=== PATIENT | female | born 1955 | race Caucasian/White ===

== ENCOUNTER 2020-08-02 14:47 | Emergency (ER) | payer MEDICARE, MEDICAID ==
--- NOTE | 2020-08-02 15:32 | EDM.PDOC ---
ED HPI GENERAL MEDICAL PROBLEM - General Chief Complaint: Chest Pain Stated Complaint: CHEST PAIN Time Seen by Provider: 08/02/20 15:10 Source of Information: Reports: Patient History Limitations: Reports: No Limitations - History of Present Illness INITIAL COMMENTS - FREE TEXT/NARRATIVE: 64 YO WF PRESENTS TO ER COMPLAINING OF CHEST PAIN WHICH BEGAN AFTER LUNCH TODAY. PT REPORTS SHE WAS SITTING IN BED WHEN SHE DEVELOPED SUDDEN ONSET OF SUBSTERNAL CHEST PAIN. PT REPORTS ASSOCIATED SHORTNESS OF BREATH AND DIAPHORESIS WHICH LASTED UNTIL EMS ARRIVED. PT RECEIVED NITRO/ASA AND HAD COMPLETE RESOLUTION OF HER SYMPTOMS. PT DENIES COUGH/CONGESTION, NO FEVER/CHILLS, NO N/V/D. PT WITH PMH OF ANXIETY/DEPRESSION, COPD, HYPERTENSION, AND PROXIMAL ATRIAL FIB. PT CURRENTLY CHEST PAIN FREE. Onset: Today Location: Reports: Chest Quality: Reports: Ache Severity: Moderate Improves with: Reports: Medication Worsens with: Reports: None Associated Symptoms: Reports: Chest Pain, Diaphoresis, Shortness of Breath. Denies: Cough, Fever/Chills, Nausea/Vomiting, Rash, Syncope, Weakness Treatments SCREEDMAN: Reports: Aspirin, IV/IO, Nitroglycerin ED ROS GENERAL - Review of Systems Review Of Systems: See Below Constitutional: Reports: No Symptoms HEENT: Reports: No Symptoms Respiratory: Reports: Shortness of Breath Cardiovascular: Reports: Chest Pain, Lightheadedness Endocrine: Reports: No Symptoms GI/Abdominal: Reports: No Symptoms : Reports: No Symptoms Musculoskeletal: Reports: No Symptoms Skin: Reports: No Symptoms Neurological: Reports: No Symptoms Psychiatric: Reports: No Symptoms Hematologic/Lymphatic: Reports: No Symptoms Immunologic: Reports: No Symptoms ED EXAM, GENERAL - Physical Exam Exam: See Below Exam Limited By: No Limitations General Appearance: Alert, WD/WN, No Apparent Distress Eye Exam: Bilateral Eye: EOMI, PERRL Head: Atraumatic, Normocephalic Neck: Normal Inspection, Supple, Non-Tender, Full Range of Motion Respiratory/Chest: No Respiratory Distress, Lungs Clear, Normal Breath Sounds, No Accessory Muscle Use, Chest Non-Tender Cardiovascular: Normal Peripheral Pulses, Regular Rate, Rhythm, No Edema, No Gallop, No JVD, No Murmur, No Rub GI/Abdominal: Normal Bowel Sounds, Soft, Non-Tender, No Organomegaly, No Distention, No Abnormal Bruit, No Mass Back Exam: Normal Inspection, Full Range of Motion, NT Extremities: Normal Inspection, Normal Range of Motion, Non-Tender, Normal Capillary Refill, No Pedal Edema Neurological: Alert, Oriented, CN II-XII Intact, Normal Cognition, Normal Gait, Normal Reflexes, No Motor/Sensory Deficits Psychiatric: Normal Affect, Normal Mood Skin Exam: Warm, Dry, Intact, Normal Color, No Rash Lymphatic: No Adenopathy EKG INTERPRETATION EKG Date: 08/02/20 Time: 15:22 Rhythm: NSR Rate (Beats/Min): 84 [place]: Normal P-Wave: Present QRS: Normal ST-T: Normal QT: Normal Comparison: NA - No Prior EKG Course - Vital Signs Last Recorded V/S: Last Vital Signs Temp 36.3 C 08/02/20 14:49 Pulse 88 08/02/20 14:49 Resp 16 08/02/20 14:49 BP 146/63 H 08/02/20 14:49 Pulse Ox 89 L 08/02/20 14:49 - Orders/Labs/Meds Orders: Active Orders 24 hr Category Date Time Status EKG Documentation Completion [RC] ASDIRECTED Care 08/02/20 15:05 Active CORONAVIRUS COVID-19 RAPID [MOLEC] Stat Lab 08/02/20 16:21 Ordered EKG 12 Lead [EK] Stat Ther 08/02/20 15:03 Ordered Labs: Laboratory Tests 08/02/20 08/02/20 08/02/20 Range/Units 15:25 15:25 15:25 WBC 3.23 L (5.00-10.00) 10^3/uL RBC 4.15 (3.80-5.50) 10^6/uL Hgb 12.0 (12.0-16.0) g/dL Hct 38.0 (37.0-47.0) % MCV 91.6 (82.0-92.0) fL MCH 28.9 (27.0-31.0) pg MCHC 31.6 L (32.0-36.0) g/dL RDW 14.1 (11.5-14.5) % Plt Count 145 L (150-400) 10^3/uL MPV 9.0 (7.4-10.4) fL Immature Gran % (Auto) 0.6 (0.0-5.0) % Neut % (Auto) 57.0 (50.0-70.0) % Lymph % (Auto) 36.2 (20.0-40.0) % Grady % (Auto) 6.2 (2.0-8.0) % Eos % (Auto) 0.0 L (1.0-3.0) % Baso % (Auto) 0.0 (0.0-1.0) % Neut # (Auto) 1.84 L (2.50-7.00) 10^3/uL Lymph # (Auto) 1.17 (1.00-4.00) 10^3/uL [place] # (Auto) 0.20 (0.10-0.80) 10^3/uL Eos # (Auto) 0.00 L (0.10-0.30) 10^3/uL Baso # (Auto) 0.00 (0.00-0.10) 10^3/uL Immature Gran # (Auto) 0.02 (0.00-0.50) 10^3/uL PT 11.1 (9.2-11.2) SEC INR 1.1 (0.9-1.1) APTT 31.4 (22.8-31.4) SEC Sodium 137 (136-145) mmol/L Potassium 4.0 (3.3-5.3) mmol/L Chloride 101 (98-115) mmol/L Carbon Dioxide 31.0 (21.0-32.0) mmol/L Anion Gap 9.0 (5-15) mmol/L BUN 9 (6-25) mg/dL Creatinine 0.58 (0.51-1.17) mg/dL Est Cr Clr Drug Dosing TNP Estimated GFR (MDRD) > 60 mL/min Glucose 145 H (75 - 99) mg/dL Calcium 8.3 L (8.7-10.3) mg/dL Total Bilirubin 0.5 (0.2-1.0) mg/dL AST 164 H (15-37) U/L ALT 72 (12-78) U/L Alkaline Phosphatase 188 H (46-116) IU/L Creatine Kinase 59 (26-276) U/L CK-MB (CK-2) < 0.50 (0.00-4.30) ng/mL Troponin I < 0.04 (0.00-0.070) ng/mL B-Natriuretic Peptide 7 (0-100) pg/mL Total Protein 6.9 (6.4-8.2) g/dL Albumin 3.25 (3.00-4.80) g/dL - Radiology Interpretation Free Text/Narrative:: CXR- CM WITH PULMONARY CONGESTION Departure - Departure Time of Disposition: 16:29 Disposition: Refer to Observation Condition: Good Clinical Impression: Chest pain Qualifiers: Chest pain type: unspecified Qualified Code(s): R07.9 - Chest pain, unspecified Referrals: Geeta Phillips MD [Primary Care Provider] - Forms: ED Department Discharge Sepsis Event Note (ED) - Evaluation Sepsis Screening Result: No Definite Risk - Focused Exam Vital Signs: Vital Signs Temp Pulse Resp BP Pulse Ox 08/02/20 14:49 36.3 C 88 16 146/63 H 89 L - My Orders Last 24 Hours: My Active Orders 08/02/20 15:03 EKG 12 Lead [EK] Stat 08/02/20 15:05 EKG Documentation Completion [RC] ASDIRECTED 08/02/20 16:21 CORONAVIRUS COVID-19 RAPID [MOLEC] Stat - Assessment/Plan Last 24 Hours: My Active Orders 08/02/20 15:03 EKG 12 Lead [EK] Stat 08/02/20 15:05 EKG Documentation Completion [RC] ASDIRECTED 08/02/20 16:21 CORONAVIRUS COVID-19 RAPID [MOLEC] Stat Assessment:: 1. CHEST PAIN Plan: 1. ADMIT TO MEDICINE- DR SHAH 2. ASA/NITRO 3. TROP I Q4 X 3 4. SUPPORTIVE CARE
--- NOTE | 2020-08-02 15:46 | CR ---
[id number] RAD/RAD Chest PA or AP 1V EXAM: RAD Chest PA or AP 1V INDICATION: CHEST PAIN. COMPARISON: None. DISCUSSION: Cardiomegaly and central vascular congestion. Lungs are clear. No pleural effusion or pneumothorax. IMPRESSION: As above. Bhavin Cleaning MD 08/02/20 [id number] Thank you for allowing us to participate in the care of your patient.
[2020-08-02 15:53] LABS: PTT,PARTIAL THROMBOPLSTIN TIME 31.4 SEC (22.8-31.4)
[2020-08-02 16:13] LABS: CHLORIDE,CL 101 mmol/L (98-115); SODIUM,NA 137 mmol/L (136-145)
[2020-08-02] MEDS ORDERED: Sodium Chloride 0.9% 10 ML Syringe FLUSH PRN (16:30)
[2020-08-02] MEDS ORDERED: Nitroglycerin 2% Oint 1 GM UD Packet TOP SCH (16:45)
[2020-08-03] MEDS ORDERED: Aspirin 325 MG Tab.EC PO SCH (09:00)
== END 2020-08-02 18:15 ==
LOC: KA.ED 14:47 → UNDOADMOB 16:30 → KA.MS 16:30 → KA.ED 18:15
DX: U07.1 COVID-19 (principal)
CPT/HCPCS: 36415; 71045; 80053; 82550; 82553; 83880; 84484; 85025; 85610; 85730; 93005; 99285; U0002

== ENCOUNTER 2020-11-29 15:10 | Emergency (ER) | payer MEDICARE, MEDICAID ==
--- NOTE | 2020-11-29 15:51 | EDM.PDOC ---
ED HPI GENERAL MEDICAL PROBLEM - General Chief Complaint: Allergic Reaction Stated Complaint: ALLERGIC REACTION Time Seen by Provider: 11/29/20 15:40 Source of Information: Reports: Patient, EMS History Limitations: Reports: No Limitations - History of Present Illness INITIAL COMMENTS - FREE TEXT/NARRATIVE: 65 YO WF PRESENTS TO ER AFTER AN ALLERGIC REACTION TODAY AT THE [facility] AFTER EATING [place]. PT REPORTS SHE FELT SWELLING AND ITCHING IN HER MOUTH AND BECAME CONCERNED AND IMMEDIATELY USED HER EPIPEN. EMS ARRIVED AT WHICH TIME PATIENT WAS STABLE, IN NO RESPIRATORY DISTRESS, NO CHEST PAIN OR DIZZINESS. PT REPORTS HER SYMPTOMS HAVE RESOLVED AFTER USING EPIPEN WHICH WAS ADMINISTERED 1.5 HOURS AGO. PT DENIES RASH, SHORTNESS OF BREATH, NO DIFFICULTY SWALLOWING, NO PALPITATIONS OR DIZZINESS. VITAL SIGNS- P-88, BP-130/56, RR-18, SAO2-97% ON RA. PT WITHOUT COMPLAINTS. Onset: Sudden Onset Date: 11/29/20 Onset Time: 14:00 Duration: Hour(s): (2) Location: Reports: Generalized Severity: Moderate Improves with: Reports: Medication Worsens with: Reports: None Associated Symptoms: Reports: Shortness of Breath. Denies: Confusion, Chest Pa in, Cough, Diaphoresis, Fever/Chills, Headaches, Nausea/Vomiting, Rash, Syncope, Weakness Treatments PAY AGENT: Reports: Other Medication(s), Oxygen - Related Data Allergies Allergy/AdvReac Type Severity Reaction Status Date / Time adhesive tape Allergy Rash Verified 08/02/20 16:51 ammonia Allergy Shortness Verified 08/02/20 16:51 of Breath atorvastatin Allergy Cannot Verified 08/02/20 16:51 Remember lactose Allergy Diarrhea Verified 08/02/20 16:51 lurasidone Allergy Cannot Verified 08/02/20 16:51 Remember pecan nut Allergy Anaphylactic Verified 08/02/20 16:51 Shock pineapple Allergy Airway Verified 08/02/20 16:51 Tightness rofecoxib Allergy Cannot Verified 11/29/20 15:28 Remember Home Meds: Home Meds Acetaminophen [Tylenol] 650 mg PO TID 08/02/20 [History] Albuterol Sulfate [Albuterol Sulfate Hfa] 2 puff IH Q4H PRN 08/02/20 [History] Albuterol/Ipratropium [DuoNeb 3.0-0.5 MG/3 ML] 3 ml INH Q8H PRN 10/05/20 [History] Carboxymethylcellulose Sodium [Artificial Tears] 1 drop EYEBOTH Q4H PRN 08/02/20 [History] Cholecalciferol (Vitamin D3) [Vitamin D3] 2,000 unit PO DAILY 08/02/20 [History] Cyclobenzaprine [Flexeril] 10 mg PO TID 08/02/20 [History] DULoxetine HCl [Cymbalta] 60 mg PO BEDTIME 08/02/20 [History] Gabapentin [Neurontin] 600 mg PO TID 08/02/20 [History] LORazepam [Lorazepam] 0.5 mg PO Q6H PRN 08/02/20 [History] Magnesium Hydroxide [Milk of Magnesia] 30 ml PO DAILY PRN 08/02/20 [History] Nystatin [Nystop] 1 applic TP TID 08/02/20 [History] Thiells-3/DHA/Epa/Fish Oil [Fish Oil 1,000 mg Softgel] 1,000 mg PO DAILY 08/02/20 [History] Omeprazole 20 mg PO BIDAC 08/02/20 [History] Rivaroxaban [Xarelto] 20 mg PO DAILY 08/02/20 [History] Sertraline [Zoloft] 200 mg PO BEDTIME 08/02/20 [History] Simethicone 125 mg PO DAILY 08/02/20 [History] guaiFENesin 100 mg PO Q4H PRN 08/02/20 [History] lisinopriL [Lisinopril] 2.5 mg PO DAILY 08/02/20 [History] sulfaSALAzine 1,000 mg PO BID 08/02/20 [History] traZODone HCl [Trazodone HCl] 50 mg PO BEDTIME 08/02/20 [History] Acetaminophen [Tylenol] 650 mg PO Q4H PRN 11/29/20 [History] Ascorbic Acid [Vitamin C] 1,000 mg PO BID 11/29/20 [History] Cyanocobalamin (Vitamin B-12) [Vitamin B-12] 500 mcg PO DAILY 11/29/20 [History] EPINEPHrine [Epinephrine] 0.3 mg IM ASDIRECTED PRN 11/29/20 [History] EPINEPHrine [Epipen] 0.3 mg IM ASDIRECTED PRN #1 pen 11/29/20 [Rx] Famotidine [Pepcid] 20 mg PO BID #6 tab 11/29/20 [Rx] Mag Hydrox/Aluminum Hyd/Simeth [Maalox Maximum Strength Susp] 30 ml PO Q4H PRN 11/29/20 [History] Menthol [Biofreeze] 1 ml TP QID PRN 11/29/20 [History] Ondansetron [Zofran ODT] 4 mg PO Q6H PRN 11/29/20 [History] Rosuvastatin Calcium 20 mg PO DAILY 11/29/20 [History] diphenhydrAMINE [Benadryl] 50 mg PO Q6HR #12 cap 11/29/20 [Rx] lamoTRIgine [Lamictal] 100 mg PO DAILY 11/29/20 [History] predniSONE [Prednisone] 20 mg PO DAILY 3 Days #9 tablet 11/29/20 [Rx] Past Medical History HEENT History: Reports: Impaired Vision Cardiovascular History: Reports: Afib, High Cholesterol, Hypertension Respiratory History: Reports: Asthma, Sleep Apnea, Other (See Below) Other Respiratory History: HYPOXIA Gastrointestinal History: Reports: Chronic Constipation Psychiatric History: Reports: Anxiety, Depression Endocrine/Metabolic History: Reports: Obesity/BMI 30+, Vitamin D Deficiency Social & Family History - Family History Family Medical History: No Pertinent Family History ED ROS ALLERGIC REACTION - Review of Systems Review Of Systems: See Below Constitutional: Reports: No Symptoms HEENT: Reports: Throat Swelling Respiratory: Reports: Shortness of Breath Cardiovascular: Reports: No Symptoms Endocrine: Reports: No Symptoms GI/Abdominal: Reports: No Symptoms : Reports: No Symptoms Musculoskeletal: Reports: No Symptoms Skin: Reports: No Symptoms Neurological: Reports: No Symptoms Psychiatric: Reports: No Symptoms Hematologic/Lymphatic: Reports: No Symptoms Immunologic: Reports: No Symptoms ED EXAM GENERAL NO PERIP PULSE - Physical Exam Exam: See Below Exam Limited By: No Limitations General Appearance: Alert, WD/WN, No Apparent Distress Eye Exam: Bilateral Eye: EOMI, PERRL Nose: Normal Inspection, Normal Mucosa, No Blood Throat/Mouth: Normal Inspection, Normal Lips, Normal Teeth, Normal Gums, Normal Oropharynx, Normal Voice, No Airway Compromise Head: Atraumatic, Normocephalic Neck: Normal Inspection, Supple, Non-Tender, Full Range of Motion Respiratory/Chest: No Respiratory Distress, Lungs Clear, Normal Breath Sounds, No Accessory Muscle Use, Chest Non-Tender Cardiovascular: Normal Peripheral Pulses, Regular Rate, Rhythm, No Edema, No Gallop, No JVD, No Murmur, No Rub GI/Abdominal: Normal Bowel Sounds, Soft, Non-Tender, No Organomegaly, No Distention, No Abnormal Bruit, No Mass Back Exam: Normal Inspection, Full Range of Motion, NT Extremities: Normal Inspection, Normal Range of Motion, Non-Tender, Normal Capillary Refill, No Pedal Edema Neurological: Alert, Oriented, CN II-XII Intact, Normal Cognition, Normal Gait, Normal Reflexes, No Motor/Sensory Deficits Psychiatric: Normal Affect, Normal Mood Lymphatic: No Adenopathy Course - Vital Signs Last Recorded V/S: Last Vital Signs Temp 97.4 F 11/29/20 15:23 Pulse 87 11/29/20 16:16 Resp 21 H 11/29/20 16:16 BP 95/40 L 11/29/20 16:16 Pulse Ox 98 11/29/20 16:16 Departure - Departure Time of Disposition: 15:55 Disposition: Home, Self-Care 01 Condition: Good Clinical Impression: Allergic reaction Qualifiers: Encounter type: initial encounter Qualified Code(s): T78.40XA - Allergy, unspecified, initial encounter - Discharge Information Prescriptions: diphenhydrAMINE [Benadryl] 50 mg PO Q6HR #12 cap EPINEPHrine [Epipen] 0.3 mg IM ASDIRECTED PRN #1 pen PRN Reason: Allergies Famotidine [Pepcid] 20 mg PO BID #6 tab predniSONE [Prednisone] 20 mg PO DAILY 3 Days #9 tablet Instructions: Anaphylactic Reaction, Adult Referrals: Marly Kirk [employer] [Primary Care Provider] - Forms: ED Department Discharge Additional Instructions: 1. DISCHARGE TO [facility] 2. BENADRYL 50MG EVERY 6 HOURS X 3 DAYS 3. PEPCID 20MG TWICE/DAY X 3 DAYS 4. PREDNISONE 60MG DAILY X 3 DAYS 5. FOLLOW UP WITH PCP FOR FURTHER EVALUATION AND TREATMENT 6. REFILL EPIPEN 7. RETURN TO ER FOR WORSENING SYMPTOMS Sepsis Event Note (ED) - Evaluation Sepsis Screening Result: No Definite Risk - Focused Exam Vital Signs: Vital Signs Temp Pulse Resp BP Pulse Ox 11/29/20 16:16 87 21 H 95/40 L 98 11/29/20 16:00 91 16 103/45 L 95 11/29/20 15:45 89 17 130/56 L 94 L 11/29/20 15:30 87 15 117/61 94 L 11/29/20 15:23 97.4 F 91 15 125/60 94 L - Assessment/Plan Assessment:: 1. ALLERGIC REACTION TO [place] Plan: 1. DISCHARGE TO [facility] 2. BENADRYL 50MG EVERY 6 HOURS X 3 DAYS 3. PEPCID 20MG TWICE/DAY X 3 DAYS 4. PREDNISONE 60MG DAILY X 3 DAYS 5. FOLLOW UP WITH PCP FOR FURTHER EVALUATION AND TREATMENT 6. REFILL EPIPEN 7. RETURN TO ER FOR WORSENING SYMPTOMS
== END 2020-11-29 17:00 | disposition home or self-care (01) ==
LOC: KA.ED 15:10
DX: T78.1XXA Other adverse food reactions, not elsewhere classified, initial encounter (principal); I48.91 Unspecified atrial fibrillation; E78.00 Pure hypercholesterolemia, unspecified; I10 Essential (primary) hypertension; J45.909 Unspecified asthma, uncomplicated; E66.9 Obesity, unspecified; Z68.44 Body mass index [BMI] 60.0-69.9, adult; Z91.048 Other nonmedicinal substance allergy status; Z88.8 Allergy status to other drugs, medicaments and biological substances; Z91.011 Allergy to milk products; Z91.018 Allergy to other foods; Z79.01 Long term (current) use of anticoagulants; Z79.899 Other long term (current) drug therapy
CPT/HCPCS: 99283; 99285